=== PATIENT | female | born 1965 | race Two or more races ===

== ENCOUNTER 2024-05-23 06:02 | Inpatient (IN) | payer OTHER ==
[~2024-05-23] VITALS: Ht 154.9 cm; Wt 88.0 kg
[2024-05-23] MEDS ORDERED: ONDANSETRON HCL 4 MG/2 ML VIAL ONE (06:56)
[2024-05-23] MEDS ORDERED: GLYCOPYRROLATE 0.2 MG/ML 1ML VIAL ONE (06:56)
[2024-05-23] MEDS ORDERED: PROPOFOL 10 MG/ML 20 ML IV ONE (06:56)
[2024-05-23] MEDS ORDERED: DexAMETHasone SOD PHOS 10MG/1ML VIAL INJ ONE (06:56)
[2024-05-23] MEDS ORDERED: KETAMINE 50mg/ML 1ml syringe ONE (06:57)
[2024-05-23] MEDS ORDERED: LIDOCAINE HCL 2% TOP JELLY 5ML TOP ONE (06:57)
[2024-05-23] MEDS ORDERED: LIDOCAINE 2% (LOCAL ANESTH.) PF 5ml SDV ONE (06:57)
[2024-05-23] MEDS ORDERED: KETOROLAC TROMETH 30 MG/ML 1ML VIAL ONE (06:57)
[2024-05-23] MEDS ORDERED: fentaNYL CITRATE 100 MCG/2 ML VL ONE (06:57)
--- NOTE | 2024-05-23 07:46 | DVHNC2 ---
Procedure - OPERATIVE REPORT Pre-op. Diagnosis: Stress urinary incontinence (625.6) Post-op. Diagnosis: Same as pre-op diagnosis Operation: Sling operation for incontinence (21016) Cystoscopy (69649) Anesthesia: General Indications: Patient presents with ROSALINA requiring many pads use daily. INFORMED CONSENT: Indications, risks, complications, alternatives and benefits of Transvaginal Sling operation are discussed with patient. All questions were encouraged and answered. She consented to proceed. Patient is aware of specific risks/complications including but not limited to infection, wound dehiscence, mesh erosion, urinary retention and persistent urinary incontinence. She is aware of alternatives to this procedure, including conservative management, other forms of urethropexy and pubovaginal sling. Among the various treatment options that were discussed she elected to proceed with transvaginal repair. She was fully notified that given the circumstances of her vaginal tissues, I may be required to use mesh material. I would specifically use polypropylene mesh if necessary in order to help correct her situation. There is a lot of litigation surrounding this topic. FDA (as a protective federal agency) has not pulled these materials. There is certainly litigation, very few of which have legitimacy and of those; usually extenuating circumstances are involved (such as poor patient tissue characteristics) other than just the mesh products. The patient is aware that the use of mesh could result in recurrence, erosion, pelvic pain, but it is also potentially necessary for correction of her anatomical defects. Given the above issues, informed consent was obtained. Patient has symptomatic cystocele and stress urinary incontinence. She elected to proceed. Details of Procedure: The patient was brought to the operating room and placed upon the table. After induction of anesthesia she was placed in the lithotomy position. Her genitalia and perineal regions were shaved, prepped, and draped in sans surgical fashion. A Alvarado catheter was inserted. A Jabier retractor was placed. Blue hooks were used to open up the vaginal canal. We used 1% lidocaine with epinephrine in order to hydro-dissect the mucosal layer away from the above structures which include urethra and the bladder. Next, I located and made a midurethral vaginal incision of approximately 1.5-2.0 cm and bluntly dissected bilaterally up to the interior portion of the inferior pubic ramus. The notch along the internal edge of ischiopubic ramus where the adductor longus tendon and the inferior pubic ramus converged was palpated. Integrated self-fixating tips are placed using the SoThree needle delivery system at the posterior surface of the ischiopubic ramus to align the sling appropriately in the midurethral level. Sling mesh is secured tension free with 2-0 Vicryl sutures. Needle device is removed, vaginal incision is closed with 2- 0 Vicryl suture. Cystoscopy is now performed to ensure that no injury to the bladder was incurred. Vaginal packing is placed with antibiotic and Estrace cream. Alvarado catheter remains in place. All instrument counts and sponge counts were correct at the end of the operation. Specimens: None Complications: None Findings: EBL: Minimal Notes: Visit Code: Procedure Codes: 82613 VAGINAL SLING. 40537 CYSTOSCOPY. RIKKI ZIMMERMAN MD May 23, 2024 07:46
[2024-05-23] MEDS ORDERED: MORPHINE SULFATE INJ 2 MG/ml SYRG IV PRN (08:00)
[2024-05-23] MEDS ORDERED: NITROGLYCERIN 0.4 MG SL TAB SL PRN (08:00)
[2024-05-23] MEDS ORDERED: SODIUM CHLORIDE LOCK 10 ML ONE (08:14)
[2024-05-23] MEDS ORDERED: ePHEDrine SULFATE 50 MG/ML AMP ONE (08:14)
[2024-05-23] MEDS: Lidocaine/Epinephrine 1%-1:100,000 30ML VL ONE (08:39)
[2024-05-23 09:05] VITALS: PULSE 112; RESP 16; O2SAT 97
[2024-05-23] MEDS ORDERED: hydrALAZINE HCL 20 MG/ML VL IV PRN (09:15)
[2024-05-23] MEDS ORDERED: ONDANSETRON HCL 4 MG/2 ML VIAL IV PRN (09:15)
[2024-05-23] MEDS ORDERED: NALOXONE HCL 0.4 MG/ML VIAL IV PRN (09:15)
[2024-05-23] MEDS ORDERED: HYDROmorphone HCL 2 MG/ML VL/or syr IV PRN (09:15)
[2024-05-23] MEDS ORDERED: fentaNYL CITRATE 100 MCG/2 ML VL IV PRN (09:15)
[2024-05-23] MEDS ORDERED: ePHEDrine SULFATE 50 MG/ML AMP IV PRN (09:15)
[2024-05-23] MEDS ORDERED: FLUMAZENIL 0.1 MG/ML INJ 10ML MDV IV PRN (09:15)
[2024-05-23] MEDS: ACETAMINOPHEN IV 1000 MG/100ML (10MG/ML) IV ONE (09:42)
[2024-05-23] MEDS: CELECOXIB 100 MG CAP PO ONE (09:42)
[2024-05-23] MEDS: GABAPENTIN 300 MG CAP PO ONE (09:43)
[2024-05-23] MEDS: ceFAZolin 1GM VL ONE (09:43)
[2024-05-23] MEDS: ACETAMINOPHEN IV 100 ML IV ONE (09:43)
[2024-05-23] MEDS: CIPROFLOXACIN 400MG/200ML 200 ML IV ONE (09:43)
[2024-05-23] MEDS: CELECOXIB 100 MG CAP ONE (09:43)
[2024-05-23] MEDS: GABAPENTIN 300 MG CAP ONE (09:43)
[2024-05-23] MEDS: CONJ ESTROGENS 0.625MG/GM VAG CRM 30GM PV ONE (09:44)
[2024-05-23] MEDS: NEOMYCIN-BACITRACIN-POLYM 15GM TOP OINT TOP ONE (09:44)
[2024-05-23 12:02] VITALS: BP 134/78; PULSE 66; RESP 17; TEMP 97.5; O2SAT 95
[2024-05-23 12:51] VITALS: BP 134/78; PULSE 66; RESP 17; TEMP 97.5; O2SAT 95
[2024-05-23 17:00] VITALS: BP 129/71; PULSE 73; RESP 17; TEMP 97.9; O2SAT 92
[2024-05-23] MEDS: oxyCODONE HCL 5MG TAB PO PRN (17:05)
--- NOTE | 2024-05-23 19:22 | DVHHP ---
ADMIT DATE: 05/23/2024 ATTENDING PHYSICIAN: Aman Benoit MD CHIEF COMPLAINT: Urinary incontinence. HISTORY OF PRESENT ILLNESS: This is a 59-year-old female, [facility] inmate, who was taken to the operating room today by Dr. Tu Vargas and underwent cystoscopy with a vaginal sling placement for chronic urinary incontinence. The patient tolerated the procedure well. No untoward events were noted. Currently, she states that the pain seems to be relatively well controlled with current pain medication. She denies any cough, shortness of breath or fever at this time. PAST MEDICAL HISTORY: She has hypertension, lupus, and asthma. PAST SURGICAL HISTORY: She has had a "tummy tuck." FAMILY HISTORY: Both parents had hypertension. SOCIAL HISTORY: A 40 pack years of smoking. She has a history of moderate alcohol use and also remote history of cocaine use. She is . She has 2 children, normally resides in [place], [place]. When asked about work, she said she did everything. She has been incarcerated 7 years. She does not know how much time she has left. She has no formal exercise program. REVIEW OF SYSTEMS: GENERAL: Denies any recent weight changes. HEENT: Denies any loss of consciousness, severe headache. CARDIOVASCULAR: Denies chest pain, heart disease. RESPIRATORY: Denies cough, shortness of breath, hemoptysis at this time. GASTROINTESTINAL: She has some nausea, no vomiting. Denies any constipation or diarrhea. GENITOURINARY: As per HPI. NEUROLOGIC: Denies any focal deficits. PHYSICAL EXAMINATION: VITAL SIGNS: Her temperature is 97.9 with a blood pressure 129/71, heart rate of 73, respiratory rate of 17, O2 sats 92% on room air. HEENT: Normocephalic, anicteric sclerae, pink conjunctivae. EOMI. NECK: Supple. No JVD, mass, or bruit. CHEST: Good equal excursion bilateral, nontender. HEART: S1, S2 regular. No click, murmur or gallop. LUNGS: Good equal air exchange bilateral. There are some crackles at bases, bilateral. ABDOMEN: Soft. Bowel sounds are positive. There is mild lower hemisphere tenderness. There is no guarding or rebound. NEUROLOGIC: She is awake, alert, oriented x4. She exhibits no focal deficits. EXTREMITIES: Negative ECC. ASSESSMENT: Urinary incontinence, status post cystoscopy with placement of vaginal sling. PLAN: Admit to Med/Surg. Condition is stable. We will put on regular diet. IV to Hep-Lock. We will continue with morphine for the pain. We will continue to monitor for blood pressure and we will start the patient on Lovenox for DVT prophylaxis. MD ROSENDO Pablo TID: [id number] RECEIPT: [id number]
[2024-05-23 20:00] VITALS: PULSE 75; RESP 20
[2024-05-23 21:00] VITALS: BP 111/75; PULSE 67; RESP 17; TEMP 97.7; O2SAT 95
[2024-05-23] MEDS: DOCUSATE SOD 100 MG CAP PO SCH (22:37)
[2024-05-23] MEDS: ACETAMINOPHEN 325 MG TAB PO PRN (22:41)
[2024-05-24] VITALS (9 sets, daily range): BP systolic 113–139; BP diastolic 67–82; PULSE 54–75; RESP 16–20; TEMP 97.6–98.4; O2SAT 94–100
[2024-05-24] MEDS: ENOXAPARIN SOD 40 MG/0.4 ML SYRINGE SC SCH (10:00)
[2024-05-24] MEDS ORDERED: ACETAMINOPHEN 325 MG TAB PO PRN (10:15)
[2024-05-24] MEDS: HYDROcodone-ACET 10/325MG TAB PO PRN (10:23)
--- NOTE | 2024-05-24 13:36 | DVHPN2 ---
Changes from previous H/P or p: No Changes Objective Vitals Vital Signs Date Time Temp Pulse Resp B/P (MAP) Pulse Ox O2 Delivery O2 Flow Rate FiO2 05/24/24 09:00 97.9 64 18 113/80 (91) 94 97.9 05/24/24 08:00 Room Air* 0 21 Intake/Output Intake and Output 05/24/24 07:00 Intake Total 1100 ml Output Total 1530 ml Balance -430 ml Intake Oral 1000 ml IV Total 100 ml Output Urine Total 1530 ml Medications Current Medications Medications Dose Ordered Sig/Maylin Route Start Time Stop Time Status Last Admin Dose Admin Nitroglycerin 0.4 mg Q5MINP PRN SL 05/23/24 08:00 Morphine Sulfate 2 mg Q30M PRN IV 05/23/24 08:00 Docusate Sodium 100 mg BID PO 05/23/24 22:00 05/24/24 10:22 100 MG Enoxaparin Sodium 40 mg DAILY SC 05/24/24 10:00 Acetaminophen/ Hydrocodone Bitart 1 tab Q4HP PRN PO 05/24/24 10:15 05/24/24 10:23 1 TAB Acetaminophen 650 mg Q4HP PRN PO 05/24/24 10:15 Labs and/or images reviewed: Labs reviewed by me, Image(s) reviewed by me Assessment/Plan Assessment/Plan Urinary incontinence Status post sling operation by urologist Dr. Vargas on 05/23/2024 Constipation: Lactulose Physical therapy ordered Plan discussed with: Patient Date of Service: May 24, 2024 Billing Provider: BOSSMAN HARLEY MD Common Visit Codes: 42219-[id number] INP/OBS CARE(HIGH) BOSSMAN HARLEY MD May 24, 2024 13:36
[2024-05-24] MEDS: OXYCODONE W/ ACETAMINOPHEN 5/325MG TABLET PO PRN (15:04)
[2024-05-24] MEDS ORDERED: MORPHINE SULFATE 4 MG/ML SYR/VIAL IV PRN ×2 (16:00→18:45)
[2024-05-24 18:32] LABS: Basophils # (auto) 0 10 ^3/uL (0-0.2); Basophils % (auto) 0.3 % (0.0-2.0); Eosinophils # (auto) 0.1 10 ^3/uL (0-0.8); Eosinophils % (auto) 0.7 % (0.0-7.0); Hematocrit 40.4 % (36.0-46.0); Hemoglobin 13.3 g/dL (12.2-16.2); Lymphocytes # (auto) 2.4 10 ^3/uL (0.4-5.4); Lymphocytes % (auto) 27.3 % (10.0-50.0); Mean Corpuscular Hemoglobin 30.9 pg (28.0-32.0); Mean Corpuscular Volume 93.5 fL (80.0-100.0); Monocytes # (auto) 0.5 10 ^3/uL (0-1.3); Monocytes % (auto) 6.1 % (0.0-12.0); Neutrophils # (auto) 5.9 10 ^3/uL (1.6-8.6); Neutrophils % (auto) 65.6 % (37.0-80.0); Nucleated Red Blood Cells % 0.1 %; Platelet Count (auto) 245 10^3/uL (140-450); Red Blood Cells 4.32 10^6/uL (4.0-5.20); Red Cell Distribution Width 12.9 % (11.8-14.3); White Blood Cell 8.9 10^3/uL (4.4-10.8)
[2024-05-24] MEDS: LACTULOSE 20Gm/30ML SOLN PO ONE (18:34)
[2024-05-24] MEDS: ALBUTEROL SULF 2.5 MG/0.5ML(0.5%) NEB SOLN ONE (19:32)
[2024-05-24] MEDS: IPRATROPIUM BROM 0.5 MG/2.5ML INH SOL ONE (19:32)
--- NOTE | 2024-05-24 20:03 | DVHPN ---
DATE: 05/24/2024 ATTENDING PHYSICIAN: Dr. mAan Benoit. SUBJECTIVE: The patient has been complaining of pain all day, which ranged from 8-9/10 in the vaginal area. Packing has been removed. She has not had any heavy bleeding. [place] has been discontinued and she was started on Percocet, which does not seem to be having much effect after approximately taken one a hour ago. She denies any chest pain, cough, shortness of breath, and fever. OBJECTIVE: VITAL SIGNS: Her temperature is 98.4 with a blood pressure 136/75, a heart rate of 69, respiratory rate of 19, O2 sat 95% on room air. HEART: S1, S2 regular. No click, murmur or gallop. LUNGS: Good equal air exchange bilateral, clear to auscultation. ABDOMEN: Soft, obese. There is mild tenderness in the lower hemisphere at midline area. ASSESSMENT: Urinary incontinence, status post cystoscopy with placement of vaginal sling. PLAN: We will discontinue the [place] as previously stated and we will continue with morphine. I have encouraged the patient to ambulate as much as possible and we will add morphine 4 mg IV q. 4 p.r.n. and continue with the IV for the pain. We will continue with the Lovenox for DVT prophylaxis and lactulose, docusate for constipation. We will also order CBC. MD KULDIP Pablo/MOUNA TID: [id number] RECEIPT: [id number]
[2024-05-25] VITALS (10 sets, daily range): BP systolic 129–136; BP diastolic 66–82; PULSE 60–70; RESP 16–18; TEMP 97.8–98.6; O2SAT 94–100
[2024-05-25] MEDS ORDERED: IPRATROPIUM BROM 0.5 MG/2.5ML INH SOL NEB PRN (06:00)
[2024-05-25] MEDS ORDERED: IPRATROPIUM BROM 0.5 MG/2.5ML INH SOL NEB SCH (06:00)
[2024-05-25] MEDS ORDERED: ALBUTEROL SULF 2.5 MG/0.5ML(0.5%) NEB SOLN NEB PRN (06:00)
[2024-05-25] MEDS ORDERED: ALBUTEROL SULF 2.5 MG/0.5ML(0.5%) NEB SOLN NEB SCH (06:00)
[2024-05-25] MEDS: ONDANSETRON HCL 4 MG/2 ML VIAL IV PRN (10:36)
--- NOTE | 2024-05-25 17:03 | DVHPN ---
DATE: 05/25/2024 PROGRESS NOTE ATTENDING PHYSICIAN: Dr. Aman Benoit. SUBJECTIVE: The patient is sitting up in bed with the head of the bed elevated to approximately 30 degrees. She is watching TV. She is in better spirits today. She is comfortable. She is in no active distress. When asked how she is doing, she states she is doing well. When asked if she is having pain, she said mild, which she rates as 2-3/10. No untoward events have been noted. No new complaints. She did states she has very minimal bleeding. OBJECTIVE: VITAL SIGNS: Her temperature is 98 with a blood pressure of 129/72, heart rate of 60, respiratory rate of 18, O2 sats 100% on room air. HEART: S1, S2 regular. There is no click, murmur, or gallop. LUNGS: Clear to auscultation. ABDOMEN: Soft, obese, nondistended. There is some mild tenderness in the lower hemisphere in midline area. NEUROLOGIC: She is awake, alert, and oriented x4 without focal deficits. LABORATORY DATA: We also had WBC of 8.9, hemoglobin of 13.3, and platelet of 245. ASSESSMENT: Urinary incontinence, status post cystoscopy with placement of vaginal sling. PLAN: We will continue with morphine for the pain at the operative site. We will continue with Lovenox for DVT prophylaxis, lactulose for constipation. We will continue with wound care, and I will also place the patient on animal keeper head. MD KULDIP Pablo/MIRANDA TID: [id number] RECEIPT: [id number]
[2024-05-25] MEDS: OXYCODONE W/ ACETAMINOPHEN 5/325MG TABLET PO PRN (22:06)
[2024-05-26] VITALS (8 sets, daily range): BP systolic 105–130; BP diastolic 62–85; PULSE 62–70; RESP 16–18; TEMP 97.8–98.2; O2SAT 96–100
--- NOTE | 2024-05-26 19:28 | DVHDS ---
DATE OF DISCHARGE: 05/26/2024 ATTENDING PHYSICIAN: Aman Benoit MD CHIEF COMPLAINT: Urinary incontinence. HISTORY OF PRESENT ILLNESS: A 59-year-old female, [employer] inmate, taken to the OR on day of admission by Dr. Tu Vargas and underwent cystoscopy and vaginal sling placement. Tolerated the procedure well and I was asked by Dr. Vargas to admit the patient for pain management and observation. ADMITTING DIAGNOSIS: Urinary incontinence, status post cystoscopy with placement of vaginal sling. HOSPITAL COURSE: She was admitted to Med/Surg in stable condition, started on regular diet. She was given Lovenox for DVT prophylaxis. She was given oral and IV analgesics. Patient of 4 days, in which initially her pain was 9/10 and currently she has not asked for any pain medicines at all today. She is in good spirits. No episodes of bleeding. No untoward events. She is now being discharged back to the care of the [facility] authorities in good and stable condition. DISCHARGE DIAGNOSIS: Urinary incontinence, status post cystoscopy with placement of vaginal sling. DISCHARGE MEDICATIONS: None. CONDITION ON DISCHARGE: Stable. MD KULDIP Pablo/MELANI/ELIJAH/DESTINY TID: [id number] RECEIPT: [id number]
== END 2024-05-26 18:50 | DRG 748 ==
LOC: SUR 06:02 → EEVIPCON 07:45 → OVERFLOW 07:46 → EAST 12:40
PROVIDERS: ADMIT Internal Medicine; ATTEND Internal Medicine
PROC: 0TJB8ZZ Inspection of Bladder, Via Natural or Artificial Opening Endoscopic (ICD-10-PCS; 2024-05-23)
PROC: 0TSD0ZZ Reposition Urethra, Open Approach (ICD-10-PCS; principal; 2024-05-23 07:48)
DX: N39.3 Stress incontinence (female) (male) (principal); K59.00 Constipation, unspecified; I10 Essential (primary) hypertension; J45.909 Unspecified asthma, uncomplicated; F14.90 Cocaine use, unspecified, uncomplicated; Z82.49 Family history of ischemic heart disease and other diseases of the circulatory system
CPT/HCPCS: 36415; 85025; 94640; 97110; 97116; 97163; 97530; C1771; G0378; J0131; J0690; J1100; J1885; J2003; J2405; J2704